=== PATIENT | male | born 1990 | race Caucasian/White ===

== ENCOUNTER → 2022-04-09 13:13 | Outpatient (CLI) | payer OTHER, MEDICAID, SELFPAY ==
--- NOTE | 2022-04-09 13:14 | DI.CT.S_ITS ---
PROCEDURE: CT ABDOMEN PELVIS W CON INDICATIONS: Right groin bulge TECHNIQUE: After the administration of intravenous contrast, axial sections acquired from the lung bases to the pubic symphysis. Coronal and sagittal reformats were performed. For radiation dose reduction, the following was used: automated exposure control, adjustment of mA and/or kV according to patient size. COMPARISON: [facility], CT, ABDOMEN/PELVIS WITH CONTRAST, 07/27/2011, 11:49. FINDINGS: Lower thorax: The lung bases are clear. Heart size normal. No hiatal hernia. Liver: Normal in size and attenuation. No contour deformity present. Biliary system: No calcified cholelithiasis or pericholecystic inflammation. No intra or extrahepatic bile duct dilatation. Pancreas: Unremarkable without mass or inflammation evident. Spleen: Normal in size and density. Adrenals: Normal morphology and density. Reproductive system: Unremarkable as visualized. Urinary system: Normal renal size and attenuation. No renal calculi, hydronephrosis, or solid mass present. Urinary bladder unremarkable. Gastrointestinal system: The bowel is unremarkable without evidence of bowel obstruction or inflammation. The stomach appears unremarkable. Appendix: No findings to suggest acute appendicitis. Peritoneal spaces: No mesenteric or retroperitoneal adenopathy. No free air. No free fluid. Vasculature: The IVC, aorta and iliac vasculature are unremarkable. Abdominal wall: Abdominal wall intact without evidence of ventral or inguinal hernias. Musculoskeletal: Thickening and irregularity of the right iliac wing remains unchanged from the prior exam. IMPRESSION: Thickening and irregularity of the right iliac wing remains unchanged from the prior. Otherwise unremarkable CT abdomen and pelvis without evidence of inguinal or ventral hernia Approved by: Oj Shahid M.D. on 04/09/2022 at 15:23
== END ==
PROVIDERS: PCP Family Medicine; Referring Provider Surgery; Visit Provider Surgery
DX: Q55.29 Other congenital malformations of testis and scrotum (principal)
CPT/HCPCS: 74177; Q9967